=== PATIENT | male | born 2000 | race Caucasian/White ===

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

== ENCOUNTER 2018-07-31 22:13 | Emergency (ER) | payer MEDICAID, OTHER ==
[2018-07-31] MEDS ORDERED: LIDOCAINE 2%/EPI (MDV) 20ML INJ (22:43)
[2018-07-31] MEDS: DIPHTH/TET/ACEL PERTUSS (ADULT) 0.5 ML VIAL IM* (23:01)
[2018-07-31] MEDS: LIDOCAINE 2%/EPI (MDV) 20ML INJ INJ (23:04)
[2018-07-31] MEDS: CEFAZOLIN 1 GM INJ IM (23:40)
== END 2018-08-01 00:04 | disposition home or self-care (01) ==
LOC: E/R 08-01 00:04
DX: S71.112A Laceration without foreign body, left thigh, initial encounter (principal); F17.210 Nicotine dependence, cigarettes, uncomplicated; X58.XXXA Exposure to other specified factors, initial encounter; Y92.9 Unspecified place or not applicable; Z23 Encounter for immunization
CPT/HCPCS: 12002; 90471; 90715; 96372; 99284-25